=== PATIENT | male | born 1995 | race Caucasian/White ===

== ENCOUNTER 2023-03-01 12:44 | Emergency (ER) | payer OTHER, SELFPAY ==
--- NOTE | ~2023-03-01 | XR_ITS ---
EXAMINATION: XR clavicle RT DATE: 03/01/2023 13:18 INDICATION: Popping sounds at the right clavicle TECHNIQUE: AP and 10 degree cephalad angled AP views of the right clavicle were obtained. COMPARISON: none FINDINGS: Alignment is normal. No fracture. Joint spaces are normal. Visualized portions of the upper lungs are clear. Soft tissues are unremarkable. IMPRESSION: 1. Negative right clavicle radiographs. Reviewed, dictated and finalized at location A.
[2023-03-01 12:52] VITALS: BP 117/71; PULSE 86; RESP 20; TEMP 37.1; O2SAT 99
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
== END 2023-03-01 13:30 | disposition home or self-care (01) ==
PROVIDERS: Emergency Provider Nurse Practitioner Family
DX: M25.511 Pain in right shoulder (principal); G44.209 Tension-type headache, unspecified, not intractable; S29.012A Strain of muscle and tendon of back wall of thorax, initial encounter
CPT/HCPCS: 73000; 99213; G0463